=== PATIENT | male | born 1970 ===

== ENCOUNTER 2019-09-20 05:50 | Day surgery (SDC) | payer OTHER ==
[~2019-09-20 05:50] MED LIST: BENICAR40 MG PO; PRILOSEC OTC20 MG PO; SINGULAIR 10MG10 MG PO
[2019-09-20] MEDS ORDERED: OXYC1TAB9 PO (10:40)
[2019-09-20] MEDS ORDERED: Septra Ds Tablet PO (10:40)
== END 2019-09-20 14:55 | disposition home or self-care (01) ==
LOC: CIR.AMB 05:50
DX: M76.61 Achilles tendinitis, right leg (principal); M92.61 Juvenile osteochondrosis of tarsus, right ankle